=== PATIENT | male | born 1945 | race Caucasian/White ===

== ENCOUNTER 2017-06-07 16:16 | Emergency (ER) | payer OTHER, MEDICARE ==
[~2017-06-07] VITALS: Ht 180.3 cm; Wt 79.4 kg
[~2017-06-07 16:16] MED LIST: ACTIGALL300 MG PO; ALPRAZOLAM; AMBIEN 10 MG TA10 MG PO; ASACOL400 MG PO; AVODART0.5 MG PO; BACTRIM DS TAB1 EACH PO; CALCIUM +D & M1 EACH PO; CENTRUM COMPLE1 EACH PO; COENZYME Q10200 M2 PO; CORGARD 80MG TA80 M1 PO; CORTISPORIN OTI10 M2 OT; FINASTERIDE1 MG; FISH OIL 1,0001 EAC5 PO; FLAXSEED OIL1000 MG PO; FLOMAX PO; FORMULA E400 UNIT PO; NORCO 5-325 TA1 EACH PO; PREDNISONE50 MG PO; PRILOSEC 20 MG20 MG PO; TESSALON PERLE100 MG PO; VALACYCLOVIR1000 MG PO; VICODIN 5-5001 EACH PO; VITAMIN B12 5500 MC1 PO; VITAMIN C + RO500 MG PO; VITAMIN D31000 UNI1 PO; ZOLOFT 50 MG TA50 M1 PO; ZPAK PO
[2017-06-07] MEDS ORDERED: WELLBUTRIN SR100 MG PO (17:07)
[2017-06-07] MEDS ORDERED: ATENOLOL 50MG T50 M1 PO (17:07)
[2017-06-07] MEDS ORDERED: FOSAMAX 70 MG T70 MG PO (17:08)
[2017-06-07] MEDS ORDERED: CHEST CONGESTI400 MG PO (17:09)
[2017-06-07] MEDS ORDERED: SULFASALAZINE500 M4 PO (17:09)
[2017-06-07] MEDS ORDERED: OMEPRAZOLE 20 M20 M1 PO (17:09)
[2017-06-07 17:50] VITALS: BP 150/84
== END 2017-06-07 18:13 | disposition home or self-care (01) ==
LOC: ER 16:16
DX: R04.0 Epistaxis (principal); I10 Essential (primary) hypertension; Z88.1 Allergy status to other antibiotic agents

== ENCOUNTER 2017-06-10 23:08 | Emergency (ER) | payer OTHER, MEDICARE ==
[~2017-06-10] VITALS: Ht 180.3 cm; Wt 79.4 kg
[~2017-06-10 23:08] MED LIST changes: +ATENOLOL 50MG T50 M1 PO; +CHEST CONGESTI400 MG PO; +FOSAMAX 70 MG T70 MG PO; +OMEPRAZOLE 20 M20 M1 PO; +SULFASALAZINE500 M4 PO; +WELLBUTRIN SR100 MG PO
[2017-06-11 00:22] VITALS: BP 150/89
== END 2017-06-11 00:23 | disposition home or self-care (01) ==
LOC: ER 23:08
DX: R04.0 Epistaxis (principal); I10 Essential (primary) hypertension; Z88.1 Allergy status to other antibiotic agents; Z88.8 Allergy status to other drugs, medicaments and biological substances

== ENCOUNTER 2017-06-16 00:50 | Emergency (ER) | payer OTHER, MEDICARE ==
[~2017-06-16] VITALS: Ht 180.3 cm; Wt 81.7 kg
[2017-06-16] MEDS ORDERED: AUGMENTIN 875-1 EACH PO (02:15)
[2017-06-16] MEDS ORDERED: NORCO 5-325 TA1 EACH PO (02:15)
[2017-06-16 02:30] VITALS: BP 144/83
== END 2017-06-16 03:13 | disposition home or self-care (01) ==
LOC: ER 00:50
DX: R04.0 Epistaxis (principal); I10 Essential (primary) hypertension; K51.90 Ulcerative colitis, unspecified, without complications; Z88.1 Allergy status to other antibiotic agents; Z88.8 Allergy status to other drugs, medicaments and biological substances

== ENCOUNTER 2018-06-28 01:27 | Emergency (ER) | payer OTHER, MEDICARE ==
[~2018-06-28] VITALS: Ht 180.3 cm; Wt 80.7 kg
[~2018-06-28 01:27] MED LIST changes: +AUGMENTIN 875-1 EACH PO
[2018-06-28] MEDS ORDERED: CENTRUM SILVER1 EAC7 PO (01:44)
[2018-06-28 02:26] LABS: ABSOLUTE NEUTROPHILS 2.9 thou/uL (1.4-8.2); BASOPHILS 0.8 % (0.0-2.0); EOSINOPHILS 0.9 % (0.0-3.0); HEMATOCRIT 39.4 % (42.0-52.0); HEMOGLOBIN 13.2 gm/dL (14.0-18.0); LYMPHOCYTES 15.9 % (24.0-44.0); MCH 26.8 pg (26.0-34.0); MCHC 33.4 g/dL (28.0-37.0); MCV 80.2 fL (80.0-100.0); PLATELET COUNT 80 thou/uL (150-400); POLYS 72.4 % (36.0-66.0); RBC 4.91 mil/uL (4.50-6.00); WBC 3.9 thou/uL (4.0-11.0)
[2018-06-28 02:34] LABS: ANION GAP 8 mmol/L (7-16); BUN 12 mg/dL (7-18); CALCIUM 9.1 mg/dL (8.5-10.1); CHLORIDE 92 mmol/L (98-107); CO2 24 mmol/L (21-32); GLUCOSE 119 mg/dL (74-106); POTASSIUM 3.9 mmol/L (3.5-5.1); SODIUM 124 mmol/L (136-145)
[2018-06-28 02:42] LABS: TROPONIN-I <0.06 ng/mL (<0.06)
[2018-06-28] MEDS ORDERED: TESSALON PERLE100 MG PO (04:22)
[2018-06-28 04:36] VITALS: BP 107/64
--- NOTE | 2018-06-28 09:50 | EKG ---
[address] [place] [address] ELECTROCARDIOGRAM REPORT Name: ATIYA OLSEN [id number] ������������������ Admission: 06/28/18 ������������������ Attend Phys: Discharge: 06/28/18 ������������������ Date of : 47 Report #: [id number] ����������������������������������������������������������������� [id number] THIS REPORT FOR: //name// [facility] ED Test Date: 2018-06-28 Test Time: 02:00:09 Pat Name: ATIYA OLSEN Department: Room: Gender: M [employer] Operator: jose : 1945 Requested By: Jason Rodarte Order Number: [id number] MD: Maximino Mcclellan Measurements Intervals Elmo Rate: 83 P: 60 DE: 191 QRS: -20 QRSD: 107 T: -7 QT: 384 QTc: 452 Interpretive Statements Sinus rhythm Nonspecific ST segment abnormality Compared to ECG 04/11/2012 10:50:28 Sinus bradycardia no longer present Electronically Signed On 06-28-2018 9:50:30 CDT by Maximino Mcclellan [email or web address] ��������������������������������������������� <ELECTRONICALLY SIGNED> ���������������������������������������� By: Maximino Mcclellan MD, [facility] ��������������������������������������������� 06/28/18 0950 0200 Maximino Mcclellan MD, FACC /EPI
== END 2018-06-28 04:40 | disposition home or self-care (01) ==
LOC: ER 01:27
PROVIDERS: Emergency Medicine
DX: R05 Cough (principal); R06.02 Shortness of breath; I10 Essential (primary) hypertension; Z88.8 Allergy status to other drugs, medicaments and biological substances